=== PATIENT | male | born 1995 | race Caucasian/White ===

== ENCOUNTER 2018-01-12 02:34 | Emergency (ER) | payer BC, OTHER ==
[2018-01-12] MEDS ORDERED: Lidocaine 2% w/Epinephrine 1:200K 20 ML VIAL ONE (02:57)
[2018-01-12] MEDS ORDERED: Adacel (T-DAP) 0.5 ML VIAL ONE (02:58)
[2018-01-12] MEDS ORDERED: Triple Antibiotic Oint 1 GM Packet ONE (03:13)
[2018-01-12] MEDS ORDERED: Sterile Water Irrigation 250 ML BOT ONE (07:03)
== END 2018-01-12 03:37 | disposition home or self-care (01) ==
LOC: MADERS 02:34
DX: S01.81XA Laceration without foreign body of other part of head, initial encounter (principal); V86.59XA Driver of other special all-terrain or other off-road motor vehicle injured in nontraffic accident, initial encounter
CPT/HCPCS: 12013; 90471; 90715